=== PATIENT | male | born 1940 | race Caucasian/White ===

== ENCOUNTER → 2018-03-02 | Outpatient (CLI) | payer OTHER ==
[~2018-03-02] VITALS: Ht 175.3 cm; Wt 98.1 kg
[~2018-03-02] MED LIST: AMBIEN 5 MG TABL5 M1 PO; CENTRUM SILVER1 EAC2 PO; COREG25 MG PO; DOXYCYCLINE 10100 MG PO; FLEXERIL PO; FOLIC ACID 40400 MCG PO; IRON325 PO; LASIX 40 MG TAB40 M2 PO; LEVOTHYROXINE0.05 MG PO; LISINOPRIL10 MG PO; MOBIC15 MG PO; NAPROSYN500 MG PO; NITROGLYCERIN0.4 MG SUBLING; NORCO 10-325 T1 EACH PO; PLAVIX 75 MG TA75 M1 PO; PRILOSEC20 MG PO; SIMVASTATIN20 MG PO; VITAMINC500 PO
--- NOTE | ~2018-03-02 | HPC ---
[facility] [address] [place] [address] PAIN MANAGEMENT CONSULTATION Name: SHORTJOSUE Radha Room #: [id number] Admission: 03/02/18 Attend Phys: Deacon Blanchard DO Discharge: Date of : 42 Report #: [id number] THIS REPORT FOR: //name// CC: Gonzalo Blanchard DATE OF SERVICE: 03/02/2018 The patient is a 77-year-old gentleman seen just shy of 3 years ago in 07/2015 for lumbar radiculopathy, had 2 lumbar epidural injections, was lost to follow up. He presents to pain clinic today for prolonged visit, was seen for approximately 35 minutes, greater than 50% of this time spent counseling the patient. States that the 2 injections we gave him afforded good relief, but about 2-3 months ago, pain began to recur without antecedent trauma and overuse. Pain is in the low back, left buttock and leg. The patient states pain is exacerbated by walking. Gets some relief with sitting. Describes intermittent aching, sharp, stabbing pain, rates an 8 on a VAS. Denies recent falls. Comorbidity notes a recent finding of coronary artery disease, saw Dr. Walters of Cardiology, had endovascular stent 11/06/2017, currently is on Plavix. When I saw him in the past, he was taking OxyContin 10 mg b.i.d., he has weaned down to a single Percocet 10/325 typically in the morning. His mechanical equipment test engineer took him off meloxicam and did start Naprosyn 500 mg b.i.d. (?). REVIEW OF SYSTEMS: Complete review of systems gone over with the patient, again recent diagnosis of coronary artery disease. Lumbar radiculopathy by history, hypertension by history, dyslipidemia, currently on simvastatin. Medication list was reconciled. PHYSICAL EXAMINATION: Shows a 77-year-old gentleman, BMI is 31.9 kilograms per meter squared. Blood pressure is modestly elevated at 153/116, pulse 87, respirations 16. Cranial nerves 2-12 are grossly intact. He is alert and oriented to person, place and time, judged to be a reasonable historian. Cervical range of motion is full. Rises from chair easily. Gait is generally tandem. However, he does have pain across the low back radiating into the left leg lateral L4 distribution. Does have positive straight leg raise on the left, slight decreased left hip flexion. Left dorsiflexion strength. Difficulty walking on his left heel. He can toe walk reasonably well. DIAGNOSTIC STUDIES: No recent diagnostic studies available, we reviewed x-rays from 2014, does note significant grade 2 spondylolisthesis L5-S1. [address] [address] PAIN MANAGEMENT CONSULTATION Name: JOSUE SHORT Radha Room #: REG ISABEL Gotti#: [id number] Admission: 03/02/18 Attend Phys: Deacon Blanchard DO Discharge: Date of : 42 Report #: [id number] ASSESSMENT: Symptomatic lumbar radiculopathy by clinical exam and history. RECOMMENDATION: Discussion with the patient today about therapeutic options. Contact Dr. Walters see if he can get off Plavix for 7 days (okay to take a baby aspirin) and we will plan on moving forward with epidural injection under fluoroscopy at L4-L5. If, however, he is unable to get off of his Plavix, we did talk about range of motion, stretch and conservative therapy including continued naproxen sodium. Discharged in good and stable condition. Tentatively plan a midline epidural injection at L4-L5 next visit 7 days off Plavix. <ELECTRONICALLY SIGNED> By: Deacon Blanchard DO 03/04/18 [id number] Deacon Blanchard DO /nt
[2018-03-02 09:48] VITALS: BP 153/116
== END ==
LOC: PAIN 07:13
DX: M54.16 Radiculopathy, lumbar region (principal); I25.10 Atherosclerotic heart disease of native coronary artery without angina pectoris; I10 Essential (primary) hypertension